=== PATIENT | female | born 1995 | race Caucasian/White ===

== ENCOUNTER 2017-09-27 22:09 | Emergency (ER) | payer MEDICAID ==
[~2017-09-27] VITALS: Ht 157.5 cm; Wt 52.0 kg
[2017-09-27 23:35] VITALS: BP 110/69
[2017-09-28] MEDS ORDERED: LIDOCAINE HCL 1% 20ML VIAL (Pyxis) INJ INFIL ONE (00:30)
[2017-09-28] MEDS ORDERED: BACITRACIN ZINC OINT UDPKT TOP ONE (00:30)
== END 2017-09-28 00:45 | disposition left against medical advice (07) ==
LOC: ER 22:09
DX: S61.300A Unspecified open wound of right index finger with damage to nail, initial encounter (principal); Y08.89XA Assault by other specified means, initial encounter; Y93.89 Activity, other specified; Y92.89 Other specified places as the place of occurrence of the external cause; Y99.8 Other external cause status
CPT/HCPCS: 81025; 99282; J3490; Z7610